=== PATIENT | male | born 1985 | race Caucasian/White ===

== ENCOUNTER 2025-07-15 10:22 | Emergency (ER) | payer SELFPAY ==
[2025-07-15 10:24] VITALS: BP 159/100
--- NOTE | 2025-07-15 11:10 | ED.GENMED ---
History of Present Illness
General
Chief Complaint: Back Pain
Source: patient
Exam Limitations: none
Time Seen by Provider: 07/15/25 10:57
History of Present Illness
History of Present Illness:
40 year old male presents with low back pain starting two days ago after moving a couch at work. He developed pain at that time without associated numbness, tingling or bowel or bladder dysfunction. The pain is made worse with motion. No fever.
He tried ibuprofen without significant relief. No history of prior back issues. No other complaints at this time
Phy Exam
Physical Exam
Physical Exam:
General: Well-appearing male no acute respiratory distress
HEENT: Normal cephalic atraumatic
Musculoskeletal exam: Lumbar spine is diffusely tender about the paraspinous area in the midline. Good range of motion to the lower extremities
Neurologic exam: Ambulatory with normal gait good sensation and strength to lower extremities bilateral patellar reflexes 2+
Skin is warm no rash
Course
Orders/Labs/Results
Orders:
Orders
07/15/25 11:08
CR Lumbar Spine 2 Or 3 Views Urgent
Comment:
Reason For Exam: back pain
Vital Signs
Initial and Last Documented VS:
Initial Vital Signs
Temp Pulse Resp BP Pulse Ox
98 F 118 16 159/100 97
07/15/25 10:24 07/15/25 10:24 07/15/25 10:24 07/15/25 10:24 07/15/25 10:24
Last Documented Vital Signs
Temp Pulse Resp BP Pulse Ox
98 F 118 16 159/100 97
07/15/25 10:24 07/15/25 10:24 07/15/25 10:24 07/15/25 10:24 07/15/25 11:12
MDM/Problems Addressed
Differential Diagnosis Includes:
Low back pain after lifting a couch. Consider muscular strain versus degenerative disc disease versus herniated disc. No red flags to suggest cauda equina or to suggest infectious source. X-rays pending
*Pulse Oximetry
SaO2: 97
Oxygen Mode of Delivery: Room air
Patient hypoxic: no
*Critical Care Note
Total Time (30-74mins, 75-104mins- exclusive of procedures): Not Applicable
Update Note
Update Note:
X-rays show no obvious acute bony abnormality. Suspect muscular strain. No neurologic deficit otherwise. Will prescribe muscle relaxer and anti-inflammatory
ED Attending Note
-
Portions of this chart may have been created with voice recognition software.� Occasional wrong word or��sound alike� substitutions may have occurred due to the inherent limitations of voice recognition software.
Discharge Plan
Departure
Patient Disposition: Home (Routine Discharge)
Date of Disposition: 07/15/25
Time of Disposition: 13:16
Patient with high blood pressure during this ER visit?: No
Discharge Problem:
Lumbar strain
Instructions: Low Back Pain (DC)
Prescriptions:
New
methocarbamol 750 mg tablet
750 mg PO BID Qty: 14 0RF
prednisone 10 mg Tablet
See Rx Instructions .ROUTE .COMPLEX Qty: 30 0RF
Rx Instructions:
Take By Mouth:
40 mg daily x3 days, 30 mg daily x3 days,
20 mg daily x3 days, 10 mg daily x3 days.
Referrals:
NONE,* [Family Provider, Internal Medicine]
Activity Restrictions/Additional Instructions:
Use warm compresses to the back. Use steroid and muscle relaxer as directed. Return if worse otherwise follow-up with your work-related physician
Interventions
Interventions:
*Risk Screen - Suicide Last Done: 07/15/25 10:24
*General Assessment Last Done: 07/15/25 10:24
*Neglect/Abuse Screening Last Done: 07/15/25 10:24
*ED- Fall Risk Assessment Last Done: 07/15/25 11:38
*ED COVID-19 Vaccine History Last Done: 07/15/25 10:49
*ED Influenza Vaccine History Last Done: 07/15/25 10:49
ED-Musculoskeletal Assessment Last Done: 07/15/25 11:38
Discharge Date and Time
Print Language: [place]
== END 2025-07-15 13:30 | disposition home or self-care (01) ==
LOC: EMR 10:22
PROVIDERS: EMERGENCY PHYSICIAN Emergency Medicine
DX: S39.012A Strain of muscle, fascia and tendon of lower back, initial encounter (principal); X50.0XXA Overexertion from strenuous movement or load, initial encounter; Y99.0 Civilian activity done for income or pay
CPT/HCPCS: 99283; 72100